=== PATIENT | male | born 1975 | race Caucasian/White ===

== ENCOUNTER 2021-08-20 09:10 | Emergency (ER) | payer BC ==
[2021-08-20] MEDS ORDERED: amLODIPine BESYLATE 5 MG TABLET (FP) PO ONE (09:27)
[2021-08-20] MEDS ORDERED: amLODIPine BESYLATE 5 MG TABLET (FP) ONE (09:28)
[2021-08-20 09:40] VITALS: PULSE 89; TEMP 98.2; BMI 29.5
[2021-08-20 10:29] LABS: HEMATOCRIT 51.7 % (35.4-49); HEMOGLOBIN 18.2 G/dL (11.7-16.9); MCH 32.8 pg (25.7-33.7); MCHC 35.1 g/dl (32.0-35.9); MEAN CELL VOLUME 93.4 fl (80-96); MEAN PLT VOLUME 8.1 fl (7.5-11.1); PLATELET COUNT 201.3 10^3/uL (134-434); RBC 5.54 10^6/uL (4.00-5.60); RDW 14.2 % (11.9-15.9); WHITE BLOOD COUNT 11.1 10^3/uL (4.0-10.8)
[2021-08-20 10:35] LABS: CALCIUM 9.5 mg/dl (8.5-10); CREATININE 1.1 mg/dl (0.55-1.3); TOT PROT 7.3 g/dl (6.4-8.2)
[2021-08-20 11:29] VITALS: BP 168/116
[2021-08-20 15:56] LABS: ADD RBC MORPHOLOGY YES
[2021-08-20 15:57] LABS: PLATELET ESTIMATE ADEQUATE
== END 2021-08-20 11:33 | disposition home or self-care (01) ==
LOC: FER 09:10
DX: I10 Essential (primary) hypertension (principal)
CPT/HCPCS: 36415; 80053; 85025; 99283-25

== ENCOUNTER 2022-12-25 14:05 | Emergency (ER) | payer BC ==
[2022-12-25] MEDS ORDERED: TRANEXAMIC ACID 1000 MG/10 ML VIAL IVPB ONE (14:44)
[2022-12-25 15:01] VITALS: TEMP 99.2; BMI 31.1
[2022-12-25] MEDS ORDERED: TRANEXAMIC ACID 1000 MG/10 ML VIAL ONE (15:12)
[2022-12-25 18:10] VITALS: BP 145/102; PULSE 77; RESP 16
== END 2022-12-25 18:12 | disposition home or self-care (01) ==
LOC: FER 14:05
PROC: 3E033NZ Introduction of Analgesics, Hypnotics, Sedatives into Peripheral Vein, Percutaneous Approach (ICD-10-PCS; principal; 2022-12-25)
DX: R22.0 Localized swelling, mass and lump, head (principal); T78.3XXA Angioneurotic edema, initial encounter
CPT/HCPCS: 99284-25